=== PATIENT | female | born 1995 | race Caucasian/White ===

== ENCOUNTER → 2021-01-09 | Emergency (ER) | payer SELFPAY ==
[~2021-01-09] VITALS: Ht 157.5 cm; Wt 63.6 kg
[~2021-01-09] MED LIST: CAPS42.54 TOP; CIPR-249 PO; DICY10CA13 PO; ONDA4TAB6 PO; REGL10TA6 PO; VALI5TAB PO
[2021-01-09 19:23] VITALS: BP 139/94
== END | disposition left against medical advice (07) ==
LOC: M ED 19:13
DX: F41.9 Anxiety disorder, unspecified (principal); Z53.21 Procedure and treatment not carried out due to patient leaving prior to being seen by health care provider

== ENCOUNTER 2021-01-15 20:34 | Emergency (ER) | payer BC, MEDICAID, SELFPAY ==
[~2021-01-15] VITALS: Ht 160 cm; Wt 65.3 kg
[2021-01-15] MEDS ORDERED: NS 1,000 ML IV ONE (21:50)
[2021-01-15] MEDS ORDERED: ONDANSETRON 4MG/2ML VIAL IV ONE (21:50)
[2021-01-15 22:20] LABS: BASO # 0.1 10^3/uL (0.0-0.2); BASO % 0.5 % (0.0-1.0); EOS # 0.1 10^3/uL (0.0-0.5); EOS % 0.3 % (0.0-3.0); HEMATOCRIT 46.6 % (36.0-47.0); HEMOGLOBIN 16.3 g/dl (12.0-15.5); LYMPH # 3.8 10^3/uL (1.5-5.0); LYMPH % 21.9 % (24.0-44.0); MEAN CORPUSCULAR HEMOGLOBIN 31.4 pg (27.0-33.0); MEAN CORPUSCULAR VOLUME 89.8 fl (80.0-96.0); MONO # 1.3 10^3/uL (0.0-0.8); MONO % 7.7 % (2.0-8.0); NEUTROPHILS # 11.9 10^3/uL (1.5-8.5); NEUTROPHILS % 69.1 % (36.0-66.0); PLATELET COUNT, AUTOMATED 372 10^3/uL (150-450); RED BLOOD COUNT 5.19 10^6/uL (4.00-5.40); WHITE BLOOD COUNT 17.2 10^3/uL (4.0-10.0)
[2021-01-15 22:44] LABS: ALBUMIN 4.7 GM/DL (3.2-5.2); ALT/SGPT 18 U/L (12-78); BILIRUBIN,DIRECT 0.2 MG/DL (0.0-0.2); BILIRUBIN,TOTAL 0.7 MG/DL (0.2-1.0); LIPASE 185 U/L (73-393); TOTAL PROTEIN 8.3 GM/DL (6.4-8.2)
[2021-01-15 23:10] LABS: HCG, SERUM QUANTITATIVE < 1.0 MIU/ML
[2021-01-15] MEDS ORDERED: CAPS42.54 TOP (23:28)
[2021-01-15] MEDS ORDERED: ONDA4TAB6 PO (23:28)
[2021-01-15] MEDS ORDERED: POTASSIUM CHLORIDE 10 MEQ SR TABLET PO ONE (23:40)
[2021-01-15 23:51] VITALS: BP 133/74
== END 2021-01-15 23:52 | disposition home or self-care (01) ==
LOC: M ED 20:34
DX: D72.829 Elevated white blood cell count, unspecified (principal); R11.2 Nausea with vomiting, unspecified; F12.188 Cannabis abuse with other cannabis-induced disorder; F17.200 Nicotine dependence, unspecified, uncomplicated; Z88.8 Allergy status to other drugs, medicaments and biological substances
CPT/HCPCS: 80047; 80076; 81001; 83690; 84702; 85025; 96361; 96374; 99284; J2405

== ENCOUNTER 2021-01-17 15:30 | Emergency (ER) | payer MEDICAID ==
[~2021-01-17] VITALS: Ht 160 cm; Wt 66.7 kg
[~2021-01-17 15:30] MED LIST changes: -CIPR-249 PO; -DICY10CA13 PO; -REGL10TA6 PO; -VALI5TAB PO
[2021-01-17] MEDS ORDERED: diphenhydrAMINE 50MG/ML VIAL (J1200) IV STA (17:33)
[2021-01-17] MEDS ORDERED: ACETAMINOPHEN 500 MG TAB PO ONE (17:35)
[2021-01-17] MEDS ORDERED: NS 1,000 ML IV ONE (17:35)
[2021-01-17] MEDS ORDERED: METOCLOPRAMIDE INJ 10MG/2ML VIAL (J2765 PER 1) IV ONE (17:35)
[2021-01-17 18:28] LABS: BASO # 0.1 10^3/uL (0.0-0.2); BASO % 0.6 % (0.0-1.0); EOS # 0.1 10^3/uL (0.0-0.5); EOS % 0.4 % (0.0-3.0); HEMATOCRIT 45.4 % (36.0-47.0); HEMOGLOBIN 15.7 g/dl (12.0-15.5); LYMPH # 3.2 10^3/uL (1.5-5.0); LYMPH % 20.9 % (24.0-44.0); MEAN CORPUSCULAR HEMOGLOBIN 31.3 pg (27.0-33.0); MEAN CORPUSCULAR HGB CONC 34.6 g/dl (32.0-36.5); MEAN CORPUSCULAR VOLUME 90.6 fl (80.0-96.0); MONO # 0.9 10^3/uL (0.0-0.8); MONO % 6.1 % (2.0-8.0); NEUTROPHILS # 10.9 10^3/uL (1.5-8.5); NEUTROPHILS % 71.6 % (36.0-66.0); PLATELET COUNT, AUTOMATED 322 10^3/uL (150-450); RED BLOOD COUNT 5.01 10^6/uL (4.00-5.40); WHITE BLOOD COUNT 15.2 10^3/uL (4.0-10.0)
[2021-01-17] MEDS ORDERED: ISOVUE-370 76% 100ML VIAL As Ordered ONE (18:38)
[2021-01-17 18:50] LABS: ALBUMIN 4.4 GM/DL (3.2-5.2); BILIRUBIN,DIRECT 0.2 MG/DL (0.0-0.2); BILIRUBIN,TOTAL 0.6 MG/DL (0.2-1.0); TOTAL PROTEIN 7.6 GM/DL (6.4-8.2)
[2021-01-17 20:44] LABS: AMPHETAMINES LEVEL URINE NEGATIVE (NEGATIVE); BARBITURATES URINE NEGATIVE (NEGATIVE); BENZODIAZEPINES URINE NEGATIVE (NEGATIVE); CANNABINOIDS URINE POSITIVE (NEGATIVE); COCAINE METABOLITE URINE NEGATIVE (NEGATIVE); METHADONE URINE NEGATIVE (NEGATIVE); OPIATES URINE NEGATIVE (NEGATIVE); PHENCYCLIDINE URINE NEGATIVE (NEGATIVE)
[2021-01-17] MEDS ORDERED: KETOROLAC 30 MG/ML 1ML VIAL IV ONE (20:50)
[2021-01-17] MEDS ORDERED: CIPROFLOXACIN 500MG TABLET PO ONE (21:00)
[2021-01-17] MEDS ORDERED: CIPR-249 PO (21:08)
[2021-01-17] MEDS ORDERED: REGL10TA6 PO (21:08)
[2021-01-17] MEDS ORDERED: DICY10CA13 PO (21:08)
[2021-01-17 21:18] VITALS: BP 141/86
--- NOTE | 2021-01-18 08:10 | REP ---
INDICATION: head pressure, legs giving out, neck pain. Repeat dictation. Preliminary report is provided at the time of the exam by reena MARRUFO. COMPARISON: None. TECHNIQUE: Helical scanning is acquired. 5 mm axial images were reformatted. Coronal MPR images were generated. FINDINGS: Bone window settings demonstrate an intact bony calvarium. There is no evidence of skull fracture or incidental bony calvarial lesion. The visualized paranasal sinuses appear clear. No intraorbital abnormality is seen. On soft tissue window setting images; the lateral, third, and fourth ventricles are normal in size and position. Bob-white differentiation pattern is normal above and below the tentorium. There are is no evidence of intracranial hemorrhage. No mass, edema, infarction, or midline shift is seen. No extra-axial fluid collection is appreciated. There is moderate mucosal thickening and partial filling of the left side of the sphenoid sinus consistent with paranasal sinus inflammatory changes. IMPRESSION: Left sphenoid sinus opacification. Otherwise negative CT study of the brain.. <Electronically signed by Matthew Whitley > 01/18/21 0822
--- NOTE | 2021-01-18 08:13 | REP ---
INDICATION: abd pain,n/v/d. Repeat dictation. Preliminary report is provided at the time of the exam by reena MARRUFO. COMPARISON: None. TECHNIQUE: Helical scanning was acquired and 4 mm axial images are re-formatted. Coronal and sagittal MPR images were generated and reviewed. The contrast enhancement dose is 100 mL of intravenous Isovue 370. FINDINGS: Preliminary digital paperhanger apprentice radiograph is unremarkable. Lung bases are clear on axial CT images. There is mild decreased density in the liver consistent with fatty infiltration. No focal hepatic lesion is seen. The liver is not felt to be enlarged. The spleen is unremarkable. Normal adrenal glands are seen. No abnormality is noted in the pancreas or the gallbladder. No retroperitoneal mass or adenopathy is seen. The kidneys enhance symmetrically and are morphologically intact. No uterine or ovarian abnormality is seen. Urinary bladder is unremarkable. No abdominal wall defect is seen. Small and large bowel loops are unremarkable in the abdomen and pelvis. A normal appendix is seen in the right lower quadrant. Bone window settings show no bony destructive lesion. IMPRESSION: No acute intra-abdominal or pelvic abnormality. <Electronically signed by Matthew Whitley > 01/18/21 2811
== END 2021-01-17 21:24 | disposition home or self-care (01) ==
LOC: M ED 15:30
DX: K52.9 Noninfective gastroenteritis and colitis, unspecified (principal); R51.9 Headache, unspecified; R10.9 Unspecified abdominal pain; R11.0 Nausea; F17.200 Nicotine dependence, unspecified, uncomplicated; F12.10 Cannabis abuse, uncomplicated; J34.89 Other specified disorders of nose and nasal sinuses; Z88.1 Allergy status to other antibiotic agents
CPT/HCPCS: 36415; 70450; 74177; 80047; 80076; 80307; 81001; 83690; 84702; 85025; 96361; 96374; 96375; 99284; J1200; J1885; J2765; Q9967

== ENCOUNTER 2021-02-03 12:06 | Emergency (ER) | payer MEDICAID ==
[~2021-02-03] VITALS: Ht 160 cm; Wt 65.9 kg
[~2021-02-03 12:06] MED LIST changes: +CIPR-249 PO; +DICY10CA13 PO; +REGL10TA6 PO
[2021-02-03] MEDS ORDERED: hydrOXYzine 25 MG TAB PO STA (13:19)
[2021-02-03 13:46] LABS: BASO % 0.2 % (0.0-1.0); EOS % 0.2 % (0.0-3.0); HEMATOCRIT 45.6 % (36.0-47.0); HEMOGLOBIN 16.3 g/dl (12.0-15.5); LYMPH # 1.7 10^3/uL (1.5-5.0); LYMPH % 10.3 % (24.0-44.0); MEAN CORPUSCULAR HEMOGLOBIN 31.8 pg (27.0-33.0); MEAN CORPUSCULAR HGB CONC 35.7 g/dl (32.0-36.5); MEAN CORPUSCULAR VOLUME 88.9 fl (80.0-96.0); MONO # 0.7 10^3/uL (0.0-0.8); MONO % 4.1 % (2.0-8.0); NEUTROPHILS # 13.8 10^3/uL (1.5-8.5); NEUTROPHILS % 84.8 % (36.0-66.0); PLATELET COUNT, AUTOMATED 377 10^3/uL (150-450); RED BLOOD COUNT 5.13 10^6/uL (4.00-5.40); WHITE BLOOD COUNT 16.2 10^3/uL (4.0-10.0)
[2021-02-03 14:18] LABS: BLOOD UREA NITROGEN 7 MG/DL (7-18); CALCIUM LEVEL 10.4 MG/DL (8.5-10.1); CARBON DIOXIDE LEVEL 22 MEQ/L (21-32); CHLORIDE LEVEL 109 MEQ/L (98-107); CREATININE FOR GFR 0.78 MG/DL (0.55-1.30); FREE T4 1.31 NG/DL (0.76-1.46); GLOMERULAR FILTRATION RATE > 60.0 (>60); GLUCOSE, FASTING 101 MG/DL (70-100); POTASSIUM SERUM 3.6 MEQ/L (3.5-5.1); SODIUM LEVEL 139 MEQ/L (136-145)
[2021-02-03 14:32] LABS: AMPHETAMINES LEVEL URINE NEGATIVE (NEGATIVE); BARBITURATES URINE NEGATIVE (NEGATIVE); BENZODIAZEPINES URINE NEGATIVE (NEGATIVE); CANNABINOIDS URINE POSITIVE (NEGATIVE); COCAINE METABOLITE URINE NEGATIVE (NEGATIVE); METHADONE URINE NEGATIVE (NEGATIVE); OPIATES URINE NEGATIVE (NEGATIVE); PHENCYCLIDINE URINE NEGATIVE (NEGATIVE)
[2021-02-03] MEDS ORDERED: VALI5TAB PO (15:40)
[2021-02-03 15:51] VITALS: BP 118/74
== END 2021-02-03 15:54 | disposition home or self-care (01) ==
LOC: M ED 12:06 → EDBD 12:06 → M ED 15:54
DX: F41.9 Anxiety disorder, unspecified (principal); F17.200 Nicotine dependence, unspecified, uncomplicated; Z88.8 Allergy status to other drugs, medicaments and biological substances